=== PATIENT | female | born 1990 | race Hispanic/Latino ===

== ENCOUNTER 2017-04-03 19:37 | Emergency (ER) | payer OTHER | END 2017-04-03 20:49 | disposition home or self-care (01) | LOC: EDH 19:37 | DX: S60.212A Contusion of left wrist, initial encounter (principal); W01.0XXA Fall on same level from slipping, tripping and stumbling without subsequent striking against object, initial encounter; Y93.01 Activity, walking, marching and hiking; Y92.488 Other paved roadways as the place of occurrence of the external cause; Y99.8 Other external cause status | CPT/HCPCS: 29125; 73110 ==

== ENCOUNTER 2020-05-24 04:25 | Emergency (ER) | payer BC ==
[2020-05-24] MEDS ORDERED: LIDOCAINE HCL MPF 1% 5ML VIAL ONE (04:49)
== END 2020-05-24 05:30 | disposition home or self-care (01) ==
LOC: EDH 04:25
DX: L02.212 Cutaneous abscess of back [any part, except buttock and flank] (principal); E11.9 Type 2 diabetes mellitus without complications; Z79.899 Other long term (current) drug therapy
CPT/HCPCS: 10061; 82948; 99283; J3490